=== PATIENT | male | born 1995 | race African-American/Black ===

== ENCOUNTER 2022-04-23 11:19 | Emergency (ER) | payer MEDICAID ==
[~2022-04-23] VITALS: Ht 172.7 cm; Wt 80.0 kg
[2022-04-23 11:32] VITALS: BP 131/89
== END 2022-04-23 16:04 | disposition home or self-care (01) ==
LOC: ER 11:34
DX: U07.1 COVID-19 (principal); R05.9 Cough, unspecified; R51.9 Headache, unspecified; M79.10 Myalgia, unspecified site
CPT/HCPCS: 87426; 87804; 99283; C9803